=== PATIENT | female | born 2000 | race Caucasian/White ===

== ENCOUNTER 2025-06-22 09:19 | Inpatient (IN) | payer OTHER, SELFPAY ==
[2025-06-22 09:28] VITALS: BMI 29.9
[2025-06-22 09:44] VITALS: BP 120/73; PULSE 94; RESP 20; TEMP 37.1; O2SAT 99; BMI 29.9
[2025-06-22] MEDS: LACTATED RINGERS 1000ML 1,000 ML 999 ML IV (09:55)
[2025-06-22 10:06] LABS: Hematocrit 38.8 % (37.0-47.0); Hemoglobin 12.9 g/dL (12.2-16.2); Immature Granulocytes % 0.6 %; Mean Corpuscular HGB Conc 33.2 g/dL (31.8-35.4); Mean Corpuscular Hemoglobin 30.1 pg (27.0-31.2); Mean Corpuscular Volume 90.7 fl (81-99); Nucleated Red Blood Cells % 0 %; Platelet Count 203 K/mm3 (142-424); Red Blood Count 4.28 M/mm3 (4.20-5.40); Red Cell Distribution Width-SD 41.7 fL; White Blood Count 12.1 K/mm3 (4.8-10.8)
--- NOTE | 2025-06-22 10:51 | P.PNANES_ITS ---
[facility] Disclaimer: The information contained in this section may have been updated after the patient was seen, as this information can be updated by other users. Social History Smoking Status: Unknown if ever smoked alcohol intake: never substance use type: denies use current occupational status: unemployed Travel in the last 8 weeks?: None [facility] Anesthesia Checklist Patient Identification Patient Identification: Arm Band and Verbal (Name & ) Structural Data Admitted From: Inpatient Planned Operative Procedure/s: Labor epidural Consent for Planned Operative Procedure(s) Verified: Yes Verified Documents: Surgical Consent NPO Status Verified Time NPO: 00:00 Chart Verification Results Verified: CBC and BMP Additional verifications Patient : Yes Anesthesia Reactions: No Airway Assessment Mallampati Score:: Class II C-Spine Mobility Assessed: No Dentition: Good Dentition Neurological Assessment Level of Consciousness: Awake, Alert and Appropriate Hx Seizures: No Numbness or tingling in extremities: No Anesthesia Plan Anesthesia Risk discussed: Yes Anesthesia Plan: Verified ASA Class: II Anesthesia Type: Epidural
[2025-06-22] MEDS: DEXTROSE 5%-LACTATED RINGERS 1,000 ML 500 ML IV ×2 (11:30→19:29)
--- NOTE | 2025-06-22 13:24 | EXP.HP ---
History of Present Illness *Admission Date: 06/22/25 *Reason for visit:: Labor *History of present illness: Sarah is a 25-year-old G1, P0 who presented this morning after laboring at home for greater than 24 hours. Gestational age is suspected to be 41 weeks and 1 day gestation. The patient has not had anatomy scan or a GBS but is believed to have an uncomplicated . [employer] denies any concerns for hypertension or diabetes. She did not have diabetes screening with this . On presentation she endorsed good movement, denied any leakage of fluid or vaginal bleeding. She was experiencing extremely painful contractions. O+, antibody negative, rubella immune, hepatitis B negative, hepatitis C negative, RPR negative, HIV negative GBS Unknown [facility] Disclaimer: The information contained in this section may have been updated after the patient was seen, as this information can be updated by other users. Social History (Updated 06/22/25 @ 10:51 by Brent Minor CRNA) Smoking Status: Unknown if ever smoked alcohol intake: never substance use type: denies use current occupational status: unemployed Travel in the last 8 weeks?: None Have you lived/traveled outside US in past 30 days?: No Contact w/someone who lives/traveled outside US past 30 days?: No Exposure to someone with infectious disease in past 14 days?: No Do you have a fever (greater than 100.4 F or 38 C)?: No Have you tested positive for COVID-19?: No Exposed to someone with COVID-19 in past 14 days?: No Do you have a sore throat?: No Do you have a cough?: No Do you have any weakness?: No Do you have any diarrhea?: No Are you experiencing any unusual bleeding?: No Do you have any muscle aches/pain?: No Do you have any abdominal pain?: No Are you experiencing loss of taste or smell?: No Other Medical History Have you received the Flu Vaccine for this season: No Have you received the Pneumonia Vaccine: No Review of Systems Review of Systems Review of systems (narrative): Review of Systems Constitutional: Denies fever, chills, and sweats Eyes: Denies vision change/ pain Respiratory: Denies cough and shortness of breath Cardiovascular: Denies chest pain and lightheadedness Gastrointestinal: Admits abdominal pain with contractions. Denies nausea, vomiting. Genitourinary: Denies dysuria and incontinence Musculoskeletal: Denies shoulder pain and back pain Neurological: Denies change in speech or headaches Meds Home Medications and Allergies Home Medications ?Medication ?Instructions ?Recorded ?Confirmed ?Type docosahexaenoic acid (dha)-epa 1 cap PO DAILY 06/22/25 06/22/25 History capsule vit no.95-ferrous 1 tab PO DAILY 06/22/25 06/22/25 History fumarate 28 mg-folic acid 800 mcg tablet () New Prescriptions to Start Prescriptions: Allergies Allergy/AdvReac Type Severity Reaction Status Date / Time No Known Allergies Allergy Verified 06/22/25 09:29 Exam Data for Last 24 hours Vital signs and Labs for Last 24 Hours: Temp Pulse Resp BP Pulse Ox O2 Del Method 98.7 F 94 H 20 120/73 99 Room Air 06/22/25 09:44 06/22/25 09:44 06/22/25 09:44 06/22/25 09:44 06/22/25 09:44 06/22/25 09:44 Laboratory Results - last 24 hr 06/22/25 09:47: WBC 12.1 H, RBC 4.28, Hgb 12.9, Hct 38.8, MCV 90.7, MCH 30.1, MCHC 33.2, RDW 12.7, Plt Count 203, MPV 10.0, Neut % (Auto) 87.7 H, Lymph % (Auto) 7.3 L, [place] % (Auto) 4.2, Eos % (Auto) 0.0 L, Baso % (Auto) 0.2, Neut # (Auto) 10.7 H, Lymph # (Auto) 0.9, [place] # (Auto) 0.5, Eos # (Auto) 0.0, Baso # (Auto) 0.0, Blood Type O Positive, Antibody Screen Negative I & O for Last 24 hours: Intake & Output 06/19/25 06/20/25 06/21/25 06/22/25 23:59 23:59 23:59 23:59 Weight 180 lb Narrative: General: patient is alert oriented in no acute distress and responds appropriately to questions. HEENT: NCAT, EOMI, moist mucous membranes, neck supple with full ROM Cardiovascular: RRR +S1/S2, no murmurs or rubs Pulmonary: Clear to auscultation bilaterally, nonlabored breathing, symmetric chest rise Abdominal: Gravid abdomen appropriate for gestation. No guarding, rebound, or tenderness noted. Extremities: trace edema, no tenderness or cyanosis noted Skin: Normal turgor, intact, warm. Negative for erythema, pallor, petechia, or lesions Neurologic: Negative for sensory or motor deficit Psychiatric: Normal affect, normal thought process, good judgment and insight, no depression or anxious mood appreciated. *Routine HEENT Exam Head: Present normocephalic and atraumatic Eye: Present EOMI, PERRL and normal accommodation; Absent conjunctival icterus, scleral injection, nystagmus or exophthalmos ENT: Present mucous membranes moist *Routine Respiratory Exam Respiratory: Present CTA bilaterally, normal respiratory effort, able to speak in complete sentences and symmetric chest movement; Absent accessory muscle use, decreased breath sounds, rales, respiratory distress, wheezes, distant breath sounds or diminished air movement *Routine Cardiovascular Exam Cardiovascular: Present RRR, Normal S1 and Normal S2; Absent murmur or gallop *Routine Abdominal Exam Abdominal: Present soft and normoactive bowel sounds; Absent tenderness, distended, rebound or guarding *Routine Rectal Exam Rectal:: deferred *Routine Genitalia Exam Genitalia:: normal female Assessment and Plan *Assessment and plan (1) Labor abnormal: Status: Acute Category: Medical Code(s): O62.9 - Abnormality of forces of labor, unspecified (2) 41 weeks gestation of : Status: Acute Category: Medical Code(s): O48.0 - Post-term ; Z3A.41 - 41 weeks gestation of Plan - Monitor vitals - Admit to L&D for labor monitoring and delivery - Plan for augmentation of labor with AROM and pitocin if required. - External FHR and TOCO monitor - Exam on admission: /-1 - GBS unknown/ Blood type: O+ - Hemoglobin: 12.9, Plt: 203 - Plan for epidural anesthesia - Anticipate vaginal delivery of male infant Patient was allowed to labor on her own for greater than 2 hours without any cervical change noted. At this time she was comfortable and resting with her epidural. Encourage patient for AROM. AROM completed, clear fluid. An additional 2 hours passed without any cervical change and the patient was encouraged to start Pitocin. Continuous monitoring will be completed
[2025-06-22] MEDS: OXYTOCIN/RINGERS LACTATE 30 UNITS/500 ML BAG IV (16:58)
[2025-06-22 20:00] VITALS: BP 127/67; PULSE 116; RESP 18; TEMP 36.8; O2SAT 99
--- NOTE | 2025-06-22 20:23 | EXP.DN ---
Delivery Note Delivery Date:: 06/22/25 Delivery Time:: 19:53 Anesthesia Type: Epidural Was labor medically induced?: No Induction method: none Gestational age (weeks): 41 delivered prior to 39 weeks?: No Gender: Female at 1 minute: 7 at 5 minutes: 8 Delivery Procedure:: Preoperative diagnosis: 1. at 41 completed this weeks gestation, vertex 2. Rh positive 3. GBS unknown Postoperative diagnosis: 1. at 41 completed this weeks gestation, vertex 2. Rh positive 3. GBS unknown EBL: 300mL Specimen: 1. Cord blood 2. arterial cord gasses 3. Live viable female infant 4. Placenta Findings: 1. Liveborn viable female : undecided. Apgars 7/8 at 1 and 5 minutes respectively. Weight pending at time of dictation 2. 2nd degree midline perineal laceration, pt declined repair Complications: None Procedure: Nonoperative spontaneous vaginal delivery Sarah Ya is a 25-year-old G1, P0 who presented to labor and delivery this morning after being on labor at home for greater than 24 hours. On admission she was 7 cm dilated and having irregular contractions. She was in excruciating amount of pain and elected to proceed with an epidural. She declined AROM or Pitocin at this time and requested to first have a nap. She was allowed to nap for 2 hours and no cervical change was noted with irregular and consistent contractions. The patient was consented for artificial rupture membranes and the risks and benefits were reviewed with the patient and her spouse in detail. Artificial rupture revealed clear fluid. The patient refused Pitocin at this time. The patient was monitored for an additional 2 hours and changed to 8 cm was noted. An additional 2 hours was given and no cervical change was noted so Pitocin was started and agreeance to increase Pitocin at a slow and low rate. During this time overall the tracing remained to have moderate variability with infrequent accelerations. Throughout her labor code she was noted to have variable and late decelerations. Pitocin was started and increased to a max rate of 3 milliunits/h. During pushing the patient had recurrent variable decelerations. Fetus was also noted to have tachycardia. Patient remained afebrile. She elected to proceed with delivery in a side-lying position with minimal interventions or checking for position. The infant was suspected to be in the NAKIA position. With effective maternal pushing there was a nonoperative spontaneous vaginal delivery at 1950. No nuchal cord was present. The anterior right shoulder delivered followed by the posterior shoulder without dystocia. The body and lower extremities delivered without difficulty. The was bulb suctioned and was crying immediately following delivery. The was placed on the maternal abdomen and per patient request the umbilical cord was short but left attached to the infant until is no longer pulsatile and translucent. Prior to this an arterial cord gas was collected. The umbilical cord was doubly clamped and cut by the father. Cord blood was collected for routine testing. The placenta delivered with cord traction and suprapubic countertraction. The patient refused Pitocin and elected to proceed with nipple stimulation and having the latch and tried a nurse. The placenta was noted to be intact with significant calcifications noted. The patient elected to take her placenta home instead of sending it to pathology. Her uterus was firm and below the umbilicus but she did have a moderate amount of bleeding. I counseled the patient on the use of Cytotec she elected to proceed with the latch and nipple stem prior to Cytotec being placed. I counseled the patient on her second-degree midline perineal laceration and the patient reported that her and her concrete mixing truck driver had discussions prior to delivery and she did not want to have a repair if she had had a first or second-degree laceration. There was a small amount of bleeding and the patient agreed to 2 simple interrupted stitches to reapproximate the vaginal mucosa and help with hemostasis. Prior to the repair 10 mL of 1% lidocaine was injected for patient comfort as she said that it was still very painful. 2-0 Vicryl was used to reapproximate the tissue with simple interrupted stitches. The laceration was noted to be hemostatic. This concluded the delivery and the patient was counseled regarding the events of the delivery and repair. All counts were correct by nursing. Mother and infant were doing well and bonding upon my leaving the delivery room. I did discuss with the patient that if she had continued, increased, or persistent vaginal bleeding this would require a dose of uterotonic and she was hesitantly in agreement, patient will latch the and proceed with nipple stimulation. Her bladder will be drained and her QBL will be closely monitored. Laceration:: vaginal Placental Delivery Description: Spontaneous
[2025-06-22] MEDS: IBUPROFEN 400 MG TABLET 800 MG PO (22:19)
[2025-06-22] MEDS: BENZOCAINE-MENTHOL SPRAY 56GM CAN TP (22:20)
[2025-06-22] MEDS: WITCH HAZEL 40 PADS/BOX 1 EACH TP (22:20)
[2025-06-22] MEDS: ACETAMINOPHEN 500MG TAB 1000 MG PO (23:40)
[2025-06-23] VITALS: BP 108/56; PULSE 81; RESP 16; TEMP 36.7; O2SAT 98
[2025-06-23 04:00] VITALS: PULSE 60; RESP 18; TEMP 36.8
[2025-06-23 06:11] LABS: Hematocrit 33.2 % (37.0-47.0); Immature Granulocytes % 0.7 %; Mean Corpuscular HGB Conc 34.3 g/dL (31.8-35.4); Mean Corpuscular Hemoglobin 31.5 pg (27.0-31.2); Mean Corpuscular Volume 91.7 fl (81-99); Nucleated Red Blood Cells % 0 %; Platelet Count 183 K/mm3 (142-424); Red Blood Count 3.62 M/mm3 (4.20-5.40); Red Cell Distribution Width-SD 42.5 fL; White Blood Count 11.1 K/mm3 (4.8-10.8)
[2025-06-23 06:16] LABS: Hemoglobin 11.4 g/dL (12.2-16.2)
[2025-06-23] MEDS: IBUPROFEN 400 MG TABLET 800 MG PO (09:13)
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
[2025-06-23 15:40] LABS: RPR W/RFX Titers Nonreactive (Nonreactive)
== END 2025-06-22 13:15 | disposition home or self-care (01) | DRG 807 ==
PROVIDERS: Admitting Provider Obstetrics & Gynecology; Visit Provider Obstetrics & Gynecology
DX: O62.8 Other abnormalities of forces of labor (principal); Z37.0 Single live birth; O48.0 Post-term pregnancy; Z3A.41 41 weeks gestation of pregnancy; O70.1 Second degree perineal laceration during delivery
CPT/HCPCS: 59025; 82800; 85025; 86592; 86850; 94761; C1758; J2003; J2795; J3010; J7120; J7121